=== PATIENT | female | born 1965 | race Caucasian/White ===

== ENCOUNTER 2025-05-08 17:47 | Observation (INO) ==
[2025-05-08 18:51] LABS: Basophils #(Absolute) Auto 0.0 (0.0-0.1); Basophils%(Percent) Auto 1.0 (0.1-0.85); Eosinophils#(Absolute)Auto 0.1 (0.0-0.2); Eosinophils%(Percent) Auto 2.9 % (0.4-2.8); Granulocytes % - Auto 40.8 % (47.8-71.3); Granulocytes#(Absolute)- Auto 1.4 (2.3-6.0); Hematocrit 40.6 % (35.9-46.7); Mean Corpuscular Volume 93.3 fl (81.0-93.7); Monocytes #(Absolute)- Auto 0.4 (1.1-3.1); Monocytes %(Percent)- Auto 11.3 % (3.6-9.8); Platelet Count 137 K/uL (152-353); White Blood Count 3.5 K/uL (4.3-9.3)
[2025-05-08 19:08] LABS: Carbon Dioxide 24.0 mmol/L (21-32); Glucose 94.0 mg/dL (70-110); Potassium 3.7 mmol/L (3.6-5.2); Sodium 141.0 mmol/L (136-145)
[2025-05-08 19:13] LABS: PH BODY FLUID EXCP BLOOD 5.0 (5 - 9)
[2025-05-08] MEDS ORDERED: ONDANSETRON HCL/PF 4 MG/2 ML VIAL INJ PRN (21:37)
--- NOTE | 2025-05-08 21:37 | Emergency Department Note ---
HPI - Extremity Injury (Lower) General Chief Complaint: Extremity Injury, Lower Stated Complaint: Rt Leg Pain w/ Hx of Blood Clots Time Seen by Provider: 05/08/25 17:58 Source: patient Mode of arrival: walk-in Limitations: no limitations History of Present Illness HPI Narrative: 60-year-old female patient presents conscious alert and oriented x 4 to the ER complaining of pain to the right knee that radiates down to the right calf area. Patient states that this has been going on for the past 2 days progressively getting worse. Denies any known injury or trauma to cause pain. 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 Patient states that she is supposed to take Eliquis 5 mg twice daily however has not had it in for 5 weeks due to insurance issues. States it has been 2 years since her last DVT. MD complaint: Reports other (right leg pain) Onset (ago): day(s) (2) Place: Reports home Severity: mild-moderate Relieving factors: Reports nothing Exacerbating factors: Reports movement and palpation Other symptoms: Reports none Related Data Allergies Allergy/AdvReac Type Severity Reaction Status Date / Time hepatitis B virus vaccine Allergy Unknown Verified 05/08/25 18:16 olanzapine (From Zyprexa) Allergy Unknown Verified 05/08/25 18:16 Review of Systems Status of ROS 10 or more systems reviewed and unremark able except as noted in history and below Musculoskeletal Reports: extremity pain and joint pain PFSH PFSH Medical History Cervical spine arthritis Anxiety Depression Insomnia Hypercholesterolemia Blood pressure instability Deep vein thrombosis Pulmonary embolism Surgical History History of tubal ligation History of breast augmentation History of ankle surgery Social History Smoking status: never smoker Within the past year, how often did you have a drink containing alcohol: never Score interpretation: A score less than 3 is consistent with normal alcohol consumption. 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 Gender Identity: female Exam Constitutional: normal general appearance, no apparent distress and abnormal body habitus (overweight) Vital Signs - 24 hr 05/08/25 18:00 05/08/25 18:30 05/08/25 18:45 Temperature 98.4 F Pulse Rate 79 75 76 Respiratory Rate 16 16 16 Blood Pressure 128/80 121/64 99/68 Pulse Oximetry 97 98 98 Oxygen Delivery Me thod Room Air Room Air Room Air 05/08/25 19:00 Temperature Pulse Rate 83 Respiratory Rate 16 Blood Pressure 105/66 Pulse Oximetry 97 Oxygen Delivery Me thod Room Air HENMT: normocephalic Eyes: PERRL Neck/C-Spine: visual inspection normal and trachea midline Chest: inspection of chest normal Respiratory: breath sounds equal bilaterally, normal respiratory effort and clear to auscultation bilaterally Cardiovascular: normal heart rate noted and regular rhythm noted Extremities: normal to inspection, normal to palpation and tenderness noted (tenderness to the right lower leg ) 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 Tenderness to the right knee that radiates to the right calf. Positive pulse motor sensory. Patient does have a history of DVTs as well as pulmonary embolism. Patient has been off her Eliquis for 5 weeks. D-dimer is elevated. CT angiogram chest for PE study is negative for PE. Patient was given Lovenox 89 mg sq. Patient has been off of her Eliquis for 5 we eks and cannot afford Eliquis. Concern that patient may have a possible DVT. Ultrasound will be available in the morning. Patient will be admitted to observation pending ultrasound in the morning. Patient agrees with this treatment plan. Vital Signs Vital signs: Vital Signs Temperature 98.4 F 05/08/25 18:00 Pulse Rate 79 05/08/25 18:00 Respiratory Rate 16 05/08/25 18:00 Blood Pressure 128/80 05/08/25 18:00 Pulse Oximetry 97 05/08/25 18:00 Oxygen Delivery Method Room Air 05/08/25 18:00 Temperature 98.4 F 05/08/25 18:00 Pulse Rate 83 05/08/25 19:00 Respiratory Rate 16 05/08/25 19:00 Blood Pressure 105/66 05/08/25 19:00 Pulse Oximetry 97 05/08/25 19:00 Oxygen Delivery Method Room Air 05/08/25 19:00 Discharge Plan Discharge Patient Disposition: Admitted As Observation Condition: Stable Clinical Impression: D-dimer, elevated, Acute pain of right lower extremity, History of deep vein thrombosis (DVT) of lower extremity Interventions: ED Discharge Assessment Last Done: 05/08/25 22:14 ED Discharge Vital Sign Last Done: 05/08/25 22:14 Emergency Department Charge Sheet Last Done: 05/08/25 22:14 Time of Disposition: 21:36 Discharge Date/Time: 05/08/25 22:15
[2025-05-08] MEDS: MORPHINE SULFATE 4 MG/ML CARTRIDGE IV PRN (23:11)
[2025-05-08] MEDS: ENOXAPARIN SODIUM 100 MG/ML SYRINGE SUBQ SCH (23:13)
[2025-05-09] MEDS: ENOXAPARIN SODIUM 100 MG/ML SYRINGE SUBQ ONE (00:32)
[2025-05-09] MEDS: TOPIRAMATE 25 MG TABLET PO SCH (11:49)
[2025-05-09] MEDS: BUPROPION HCL 150 MG PO SCH (11:53)
[2025-05-09 11:56] VITALS: BP 118/74; PULSE 64; RESP 15; TEMP 97.7
--- NOTE | 2025-05-10 15:57 | Short Stay Summary ---
H&P: HPI History of Present Illness Chief complaint: ELEVATED D DIMER,RIGHT LOWER LEG PAIN,HX OF DVT Narrative: Ms. Mily Travis is a 60-year-old female admitted on 05/08/25 after presenting to the ER with complaints of right knee pain radiating down into the right calf. Pain began 2 days prior to arrival and has been progressively getting worse. Denies any known injury or trauma. Patient has a medical history significant for multiple DVTs and PEs and she wanted to be evaluated to rule out DVT. D-Dimer was found to be elevated at 673. CTA was completed and negative for pulmonary embolus. She was given Lovenox 1mg/kg subQ in the ER and admitted for observation to complete venous duplex of the right lower extremity. Review of Systems Status of ROS 10 or more systems reviewed and unremark able except as noted in history and below Musculoskeletal Reports: extremity pain and joint pain PFSH PFSH Medical History Cervical spine arthritis Anxiety Depression Insomnia Hypercholesterolemia Blood pressure instability Deep vein thrombosis Pulmonary embolism Surgical History History of tubal ligation History of breast augmentation History of ankle surgery Social History Smoking status: never smoker Within the past year, how often did you have a drink containing alcohol: never Score interpretation: A score less than 3 is consistent with normal alcohol consumption. 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 Gender Identity: female Meds Home Medications and Allergies Home Medications Medication Instructions Recorded Confirmed Type allopurinol 300 mg tablet 300 mg PO DAILY 05/09/2512/03 History apixaban 5 mg tablet (Eliquis) 5 mg PO Q12H 05/09/25 0 05/09/25 History bupropion HCl 300 mg 24 hr tablet, 300 mg PO DAILY 12/0305/09/25 History extended release metoprolol succinate 25 mg 25 mg PO DAILY 05/09/2512/03 History tablet,extended release 24 hr pantoprazole 40 mg tablet,delayed 40 mg PO DAILY 05/0905/09/25 History release trazodone 150 mg tablet 150 mg PO BEDTIME 05/09/25 0 05/09/25 History Allergies Allergy/AdvReac Type Severity Reaction Status Date / Time hepatitis B virus vaccine Allergy Unknown Verified 05/08/25 18:16 olanzapine (From Zyprexa) Allergy Unknown Verified 05/08/25 18:16 Exam Constitutional: normal general appearance, no apparent distress and abnormal body habitus (overweight) HENMT: normocephalic Eyes: PERRL Neck/C-Spine: visual inspection normal and trachea midline Chest: inspection of chest normal Respiratory: breath sounds equal bilaterally, normal respiratory effort, clear to auscultation bilaterally, no wheezes, no rales, no retractions and no use of accessory muscles Cardiovascular: normal heart rate noted and regular rhythm noted Gastrointestinal: abdomen normal to inspection, abdomen soft to palpation, nontender to palpation, nondistended and normoactive bowel sounds Genitourinary: Deferred Back/Pelvis: spine normal to inspection Extremities: normal to inspection, normal to palpation, tenderness noted (tenderness in right knee), full ROM, no joint enlargement and no deformity 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 Discharge home 2. CTA-Negative for PE 3. Venous Duplex: No sonographic evidence for acute DVT within right lower extremit 4. Recieved Lovenox 1mg/kg 5. Resume Eliquis 5mg PO BID with discount/medication assistance arranged by case management 6. Follow-up with PCP in 1 week. Code(s): R79.89 - Other specified abnormal findings of blood chemistry Results Labs Labs: Urine 05/08/25 18:05 Urine Color Yellow Urine Appearance Clear Ur Specific [place] 1.010 Urine Protein Negative Urine Glucose (UA) Normal Imaging Imaging ordered: CT scan - chest and Venous US DS: Providers Provider Date of admission: 05/08/25 21:37 Primary care physician: Petty Alexander NP DS: Summary Hospital Course Hospital Course: Ms. Mily Travis is a 60-year-old female admitted on 05/08/25 after presenting to the ER with complaints of right knee pain radiating down into the right calf. Pain began 2 days prior to arrival and has been progressively getting worse. Denies any known injury or trauma. Patient has a medical history significant for multiple DVTs and PEs and she wanted to be evaluated to rule out DVT. D-Dimer was found to be elevated at 673. CTA was completed and negative for pulmonary embolus. She was given Lovenox 1mg/kg subQ in the ER and admitted for observation to complete venous duplex of the right lower extremity. Venous duplex revealed no sonographic evidence for acute DVT within the right lower extremity. Patient seen sitting up in bed in no acute distress. She is pleasant, alert and oriented to person, place, time, and situation. She states the pain in her right lower extremity has improved significantly since admission. She states that the pain she was experiencing in her right lower extremity felt "different" than when she had her DVT. She denies any chest pain, palpitations, dyspnea, or new onset of unexplained cough. Denies redness or swelling to the right lower extremity. She reports her last DVT was 2 years ago and that she is supposed to take Eliquis 5 mg twice daily; however, has not taken it in approximately 5 weeks due to insurance issues and her co-pay increasing. Hospital course uneventful. At this time, patient has met all discharge goals and no longer necessitates hospitalization. Patient agrees and states she is ready to go home. Patient informed of treatment plan, diagnostic testing and results, and discharge instructions. Plan to discharge home and resume all medications, including Eliquis 5mg PO BID. Case management to assist with discount prescription/medication assistance for Eliquis. Appropriate disposition arrangements have been made, and follow-up care has been coordinated. The patient has been instructed to return to the ER if symptoms return or worsen. Status at Discharge Functional status at discharge: independent ambulation Overall status at discharge: patient is back to baseline Time Spent with Patient Time attestation: Total time spent providing and/or coordinating discharge services: 35 minutes Time spent: greater than 30 minutes Discharge Plan Discharge Disposition: Home, Self-Care Condition: Stable Discharge Medications: Continued allopurinol 300 mg tablet 300 mg PO DAILY Eliquis 5 mg tablet 5 mg PO Q12H bupropion HCl 300 mg tablet extended release 24 hr 300 mg PO DAILY metoprolol succinate 25 mg tablet extended release 24 hr 25 mg PO DAILY pantoprazole 40 mg tablet,delayed release (DR/EC) 40 mg PO DAILY trazodone 150 mg tablet 150 mg PO BEDTIME Discharge Orders: Discharge Order (Routine); Ordered 05/09/25 Ordered By: Harriet Alexander Activity: increase activity as tolerated Diet: advance to your usual diet Interventions: Discharge Assessment Last Done: 05/09/25 12:42 MED/SURG & ICU Observation Charge Sheet Last Done: 05/09/25 12:43 Patient Instructions: Leg Edema (ED), Deep Vein Thrombosis Prevention (DC) Activity Restrictions/Additional Instructions: CONTINUE TAKING HOME MEDICATIONS DIRECTED PRIOR TO ADMISSION FOLLOW-UP WITH [facility] PROVIDER IN 3-5 DAYS, RETURN TO ED IF SWELLING OR PAIN WORSENS. Forms: Portal/Health Info Access Inst Follow-Ups: Petty Alexander NP [Primary Care Provider, Medical] Referral Note: Follow up in 1 week. Discharge Date/Time: 05/09/25 14:00
== END 2025-05-09 14:00 | disposition home or self-care (01) ==
LOC: MS 17:47 → ED 17:47 → MS 22:15
PROVIDERS: ADMIT Nurse Practitioner Family; ATTEND Nurse Practitioner